=== PATIENT | male | born 1970 | race Caucasian/White ===

== ENCOUNTER 2017-07-01 11:12 | Emergency (ER) | payer OTHER ==
[2017-07-01 11:17] VITALS: TEMP 98.1; BMI 29.7
--- NOTE | 2017-07-01 11:36 | PDOC ---
History of Present Illness - General Chief Complaint: Pain, Acute Stated Complaint: LEFT LEG DVT SENT BY ULTRASOUND Time Seen by Provider: 07/01/17 11:14 - History of Present Illness Initial Comments: 07/01/17 11:28 46 M with h/o LLE DVT 2016 (previously on Eliquis), presenting to ED with confirmed LLE DVT today. Pt states that for the past week, he has been having cramp-like pain in his L calf, similar to the pain he had with his initial diagnosis of DVT. He denies any significant swelling. Pt initially thought it was a muscle strain from stretching his calf at the gym. Pt states that the pain has progressively improved throughout the week. Now rates it a 1/10 in severity. Pt saw his PMD on and had an outpt LLE doppler ordered for today. Pt presents to ED after tech reports that she found a DVT in his popliteal vein. Pt denies any CP/SOB. Pt has had multiple negative DVT studies of his LLE since initial positive study in 06/2016. He states that he stopped taking his Eliquis in 01/2017. He reports that he had several blood tests done by his morphologist, Dr. Mancia, that all came back normal. Past History - Past Medical History Allergies/Adverse Reactions: Allergies Allergy/AdvReac Type Severity Reaction Status Date / Time No Known Allergies Allergy Verified 07/01/17 11:13 Home Medications: Ambulatory Orders Apixaban [Eliquis -] 10 mg PO BID 7 Days #28 tablet 07/01/17 COPD: No Other medical history: LEFT LEG DVT - Suicide/Smoking/Psychosocial Hx Smoking History: Never smoked Hx Alcohol Use: Yes Drug/Substance Use Hx: No Substance Use Type: Alcohol Review of Systems - Review of Systems Comments:: 07/01/17 11:32 "GENERAL/CONSTITUTIONAL: No fever or chills. No weakness. HEAD, EYES, EARS, NOSE AND THROAT: No change in vision. No ear pain or discharge. No sore throat. CARDIOVASCULAR: No chest pain or shortness of breath. RESPIRATORY: No cough, wheezing, or hemoptysis. GASTROINTESTINAL: No nausea, vomiting, diarrhea or constipation. GENITOURINARY: No dysuria, frequency, or change in urination. MUSCULOSKELETAL: +LLE calf pain, no swelling SKIN: No rash NEUROLOGIC: No headache, vertigo, loss of consciousness, or change in strength/ sensation. ENDOCRINE: No increased thirst. No abnormal weight change. HEMATOLOGIC/LYMPHATIC: No anemia, easy bleeding, or history of blood clots. ALLERGIC/IMMUNOLOGIC: No hives or skin allergy. " *Physical Exam - Vital Signs Last Vital Signs Temp Pulse Resp BP Pulse Ox 98.1 F 85 18 149/101 98 07/01/17 11:13 07/01/17 11:13 07/01/17 11:13 07/01/17 11:13 07/01/17 11:13 - Physical Exam Comments: 07/01/17 11:33 "GENERAL: Awake, alert, and fully oriented, in no acute distress HEAD: No signs of trauma EYES: PERRLA, EOMI, sclera anicteric, conjunctiva clear ENT: Auricles normal inspection, hearing grossly normal, nares patent, oropharynx clear without exudates. Moist mucosa NECK: Nontender, no stepoffs, Normal ROM, supple, no lymphadenopathy, JVD, or masses LUNGS: Breath sounds equal, clear to auscultation bilaterally. No wheezes, and no crackles HEART: Regular rate and rhythm, normal S1 and S2, no murmurs, rubs or gallops ABDOMEN: Soft, nontender, normoactive bowel sounds. No guarding, no rebound. No masses EXTREMITIES: Normal range of motion, no edema. No clubbing or cyanosis. No cords, erythema, or tenderness NEUROLOGICAL: Cranial nerves II through XII intact. 5/5 strength and sensation in all extremities, Normal speech, normal gait SKIN: Warm, Dry, normal turgor, no rashes or lesions noted. " ED Treatment Course - LABORATORY CBC & Chemistry Diagram: 07/01/17 11:40 07/01/17 11:40 Medical Decision Making - Medical Decision Making 07/01/17 11:33 46 M with LLE cramp-like pain, with confirmed popliteal DVT on US today. Exam is otherwise benign with good perfusion, normal sensation, no significant swelling. Pt with no s/s PE. - Labs, coags - Likely restart eliquis given good pt tolerance and efficacy in past 07/01/17 12:11 Labs wnl. Will restart pt on eliquis. Pt is well appearing, with normal vitals. Clinically stable for DC at this time. I discussed the physical exam findings, ancillary test results and final diagnoses with the patient. I answered all of the patient's questions. The patient was satisfied with the care received and felt comfortable with the discharge plan and treatment plan. The patient agrees to follow up with the primary care physician within 24-72 hours. *DC/Admit/Observation/Transfer Diagnosis at time of Disposition: DVT (deep venous thrombosis) - Discharge Dispostion Disposition: HOME Condition at time of disposition: Stable - Prescriptions Prescriptions: Apixaban [Eliquis -] 10 mg PO BID 7 Days #28 tablet - Referrals Referrals: Misael Mg MD [Primary Care Provider] - Kamlesh Mancia MD [Staff Physician] - - Patient Instructions Printed Discharge Instructions: DI for Deep Vein Thrombosis Additional Instructions: adjustment supervisor the Eliquis from your pharmacy and take it as prescribed. You will need to take 10 mg twice daily for one week, followed by 5mg twice daily afterwards. Call your primary doctor TOMORROW to arrange a follow up appointment within 1 week. If you experience any chest pain, shortness of breath, worsening swelling or pain, or any other concerning symptoms, return to the ER immediately. - Post Discharge Activity - Attestations Physician Attestion: 07/01/17 12:15 I, Dr. Alonso Chahal MD, attest that this document has been prepared under my direction and personally reviewed by me in its entirety. I further attest, that it accurately reflects all work, treatment, procedures and medical decision -making performed by me.
[2017-07-01 11:52] LABS: BASO % 0.7 % (0-2.0); EOS % 2.5 % (0-4.5); HEMATOCRIT 44.6 % (35.4-49); HEMOGLOBIN 15.5 GM/dl (11.7-16.9); LYMPH % 34.8 % (8-40); MCH 31.2 pg (25.7-33.7); MCHC 34.7 g/dl (32.0-35.9); MEAN PLT VOLUME 7.7 fl (7.5-11.1); MONO % 7.8 % (3.8-10.2); NEUT % 54.2 % (42.8-82.8); PLATELET COUNT 226 K/MM3 (134-434); RBC 4.96 M/mm3 (4.00-5.60); RDW 11.4 % (11.9-15.9); WHITE BLOOD COUNT 5.8 K/mm3 (4.0-10.8)
[2017-07-01 12:03] LABS: ACTIVATED PTT 26.4 SECONDS (24.0-38.9)
[2017-07-01 12:04] LABS: ALBUMIN 4.1 g/dl (3.5-5.0); ALK PHOS 45 U/L (32-92); ANION GAP 5 (8-16); BILIRUBIN,TOTAL 0.8 mg/dl (0.2-1.0); BLOOD UREA NITROGEN 17 mg/dl (7-18); CALCIUM 8.9 mg/dl (8.4-10.2); CHLORIDE 100 mmol/L (98-107); CO2 28 mmol/L (22-28); CREATININE 0.8 mg/dl (0.6-1.3); GLUCOSE,RANDOM 106 mg/dl (74-106); POTASSIUM 3.7 mmol/L (3.5-5.1); SGOT/AST 29 U/L (10-42); SGPT/ALT 21 U/L (10-40); SODIUM 133 mmol/L (136-145); TOT PROT 7.5 g/dl (6.4-8.3)
[2017-07-01 12:07] LABS: INR 1.11 (0.82-1.09); PROTHROMBIN TIME (PATIENT) 12.4 SEC (10.2-13.0)
[2017-07-01] MEDS ORDERED: APIXABAN 5 MG TABLET PO ONE (12:15)
[2017-07-01 12:24] VITALS: BP 149/100; PULSE 70
== END 2017-07-01 12:24 | disposition home or self-care (01) ==
LOC: FER 11:12
DX: I82.432 Acute embolism and thrombosis of left popliteal vein (principal)
CPT/HCPCS: 36415; 80053; 85025; 85610; 85730; 99281-25

== ENCOUNTER 2020-06-08 10:06 | Emergency (ER) | payer OTHER | END 2020-06-08 10:42 | disposition home or self-care (01) | LOC: JVIRT 10:06 | DX: U07.1 COVID-19 (principal) | CPT/HCPCS: C9803; G2012-GT; U0003 ==